=== PATIENT | female | born 1950 | race Caucasian/White ===

== ENCOUNTER 2019-10-10 14:13 | Inpatient (IN) | payer MEDICARE ==
[~2019-10-10] VITALS: Ht 147.3 cm; Wt 90.7 kg
[~2019-10-10 14:13] MED LIST: ACYC800 PO; AMOCLA875 PO; GABA600 PO; K-Dur20 MEQ PO
[2019-10-10 14:34] LABS: BASOPHILS ABSOLUTE AUTO 0.03 K/mm3 (0.00-0.23); BASOPHILS PERCENT AUTO 0 % (0-2); EOSINOPHILS ABSOLUTE AUTO 0.18 K/mm3 (0.00-0.68); EOSINOPHILS PERCENT AUTO 2 % (0-6); Hematocrit 23.8 % (33.0-51.0); Hemoglobin 7.1 g/dL (11.5-16.0); IMMATURE GRAN ABSOLUTE AUTO 0.03 K/mm3 (0.00-0.10); IMMATURE GRAN PERCENT AUTO 0 % (0-1); LYMPHOCYTES ABSOLUTE AUTO 1.04 K/mm3 (0.84-5.20); LYMPHOCYTES PERCENT AUTO 12 % (21-46); MONOCYTES PERCENT AUTO 8 % (4-13); Mean Corpuscular HGB 22.9 pg (26.0-34.0); Mean Corpuscular HGB Conc 29.8 g/dL (31.5-36.5); Mean Corpuscular Volume 77 fL (80-100); Mean Platelet Volume 9.3 fL (9.1-12.4); NEUTROPHILS ABSOLUTE AUTO 7.02 K/mm3 (1.96-9.15); NEUTROPHILS PERCENT AUTO 78 % (41-73); Platelet Count 343 K/mm3 (150-400); RDW Coefficient Variation 13.9 % (11.7-14.2); RDW Standard Deviation 39.2 fL (35.1-46.3)
[2019-10-10 14:58] LABS: Alanine Aminotransfer (ALT/SGP 12 U/L (12-78); Albumin, Blood 2.9 g/dL (3.4-5.0); Albumin/Globulin Ratio 0.8 (0.8-1.8); Alk Phos 50 U/L (50-136); Anion Gap 6 mmol/L (6-16); Aspartate Aminotrans (AST/SGOT 13 U/L (12-37); Bilirubin, Total 0.5 mg/dL (0.1-1.0); Blood Urea Nitrogen 18 mg/dL (8-24); CO2, Blood 25 mmol/L (21-32); Calcium, Blood 8.6 mg/dL (8.5-10.1); Chloride, Blood 109 mmol/L (98-108); Creatinine, Blood 0.95 mg/dL (0.40-1.00); Globulin, Blood 3.8 g/dL (2.2-4.0); Glomerular Filtration Rate >60 (60-); Glucose, Blood 115 mg/dL (70-99); Potassium, Blood 3.6 mmol/L (3.5-5.5); Sodium, Blood 140 mmol/L (136-145); Total Protein, Blood 6.7 g/dL (6.4-8.2); Troponin I <0.015 ng/mL (0.000-0.040)
[2019-10-10 17:57] LABS: Percent Saturation 3.9 % (15.0-50.0)
[2019-10-10 18:31] LABS: Thyroid Stimulating Hormone 4.24 uIU/mL (0.360-4.800)
--- NOTE | 2019-10-10 19:16 | NUR ---
SHIFT SUMMARY PT ARRIVED TO PCU FROM ED AROUND 1725, ADMITTED FOR NEAR SYNCOPAL EPISODE & ANEMIA. PT AWAKE & ALERT. VSS. PT NOTED TO HAVE HGB OF 7.1 IN THE ED; CURRENTLY RECEIVING IV IRON INFUSION; PLAN IS TO RECEIVE 1 UNIT PRBCS & SCHEDULED IRON INFUSIONS. PT STATES THAT SHE HAS HAD INTERMITTENT VAGINAL BLEEDING X1 YEAR THAT SHE NEVER SOUGHT MEDICAL ATTENTION FOR. PT DID HAVE EPISODE OF VAGINAL BLEEDING W/ SMALL AMOUNT OF BLOOD NOTED ON PAD. INK GRINDER CONSULT WAS CALLED IN TO DR. MARYLU MICHELLE BY THIS RN; DISCUSSED TO MONITOR BLEEDING CLOSELY, MD WILL BE IN TOMORROW TO SEE PT. PELVIC ULTRASOUND DONE AT BEDSIDE. DISCUSSED W/ PT TO CALL W/ ASSISTANCE TO THE BATHROOM; PT VERBALIZED UNDERSTANDING. CURRENTLY RESTING IN BED IN NO DISTRESS; DENIES ANY C/O CHEST PAIN/PRESSURE, SOB, PALPITATIONS, OR DIZZINESS/LIGHTHEADEDNESS. REPORT GIVEN TO ONCOMING RN.
[2019-10-10 23:52] LABS: Hematocrit 28.6 % (33.0-51.0); Hemoglobin 8.7 g/dL (11.5-16.0); Mean Corpuscular HGB 24.2 pg (26.0-34.0); Mean Corpuscular HGB Conc 30.4 g/dL (31.5-36.5); Mean Platelet Volume 9.2 fL (9.1-12.4); Platelet Count 341 K/mm3 (150-400); RDW Coefficient Variation 14.9 % (11.7-14.2); RDW Standard Deviation 43.4 fL (35.1-46.3); Red Blood Cell Count 3.59 M/mm3 (3.80-5.20)
[2019-10-10 23:53] LABS: Mean Corpuscular Volume 80 fL (80-100)
[2019-10-11 04:07] LABS: Hematocrit 26.6 % (33.0-51.0); Hemoglobin 8.2 g/dL (11.5-16.0); Mean Corpuscular HGB 24.3 pg (26.0-34.0); Mean Corpuscular HGB Conc 30.8 g/dL (31.5-36.5); Mean Corpuscular Volume 79 fL (80-100); Mean Platelet Volume 9.4 fL (9.1-12.4); Platelet Count 320 K/mm3 (150-400); RDW Coefficient Variation 14.7 % (11.7-14.2); RDW Standard Deviation 42.4 fL (35.1-46.3); Red Blood Cell Count 3.37 M/mm3 (3.80-5.20); White Blood Cell Count 7.08 K/mm3 (4.00-11.30)
--- NOTE | 2019-10-11 04:22 | NUR ---
SHIFT SUMMARY PT HAS RESTED WELL THIS SHIFT. PT CONTINUES TO HAVE VAGINAL BLEEDING. MODERATE FLOW LIKE A PERIOD. SHE HAS CHANGED HER PAD TWICE THIS SHIFT AND IT HAS NOT BEEN OVERLY SATURATED. PT REPORTS VERY LITTLE CLOTS. PT RECEIVED ONE UNIT OF PRBC'S AND TOLERATED WELL. HGB UP TO 8.7 WITH 2330 CHECK. PENDING AM RESULTS AT THIS TIME. VITALS ARE STABLE. PT SBA TO BATHROOM. SHE DENIES PAIN OR NEEDS FOR MOST OF THE NIGHT. OTHER ASSESSMENTS WNL. PT TO CONTINUE IRON INFUSIONS TODAY. IVF INFUSING AT THIS TIME X1 BAG. AWAITING OBGYN CONSULT. BED IN LOWEST POSITION, CALL LIGHT WITHIN REACH. WILL CONTINUE TO MONITOR AND REPORT TO ONCOMING RN.
--- NOTE | 2019-10-11 11:02 | NUR ---
RECIEVED REPORT FROM RASHI LEE RN, @ [phone]. PATIENT TO TRANSFER TO ROOM 306.
--- NOTE | 2019-10-11 11:26 | NUR ---
TRANSFER NOTE NO ACUTE CHANGES THROUGHOUT SHIFT. VSS. PT DENIED ANY C/O CHEST PAIN/PRESSURE, SOB, DIZZINESS, OR LIGHTHEADEDNESS. GAMBLING BOX PERSON DR. MICHELLE WAS IN TO SEE PT FOR VAGINAL BLEEDING; DISCUSSED THAT SHE CAN BE SEEN AN OUTPATIENT THIS WEEK. NOTIFIED DR. ALVARADO, BUT HE WOULD STILL LIKE TO KEEP PT TO MONITOR HER. ECHO RESULTS PENDING. PT TRANSFERRED TO MEDICAL FLOOR, NON-TELE. REPORT CALLED TO CALVIN JACOBS. PT TRANSFERRED TO 306 VIA WHEELCHAIR IN STABLE CONDITION. ALL BELONGINGS SENT W/ PT.
--- NOTE | 2019-10-11 16:15 | NUR ---
PATIENT HAS HAD AN UNEVENTFUL DAY SINCE TRANSFERING TO THE MEDICAL UNIT THIS MORNING/AFTERNOON. SHE CALLS APPROPRIATELY FOR STAFF ASSIST NEEDED; SHE IS INDEPENDENT IN HER ROOM. NO ACUTE CHANGES TO REPORT ON AT THIS TIME.
--- NOTE | 2019-10-12 04:23 | NUR ---
SHIFT SUMMARY ADMITTED FOR SYNCOPE. FULL CODE. FOUND TO BE ANEMIC: MONITORING H&H LABS, BLOOD TRANSFUSED ON PREVIOUS SHIFT, IV IRON TO BE INFUSED SCHEDULED. SHE IS A&O X4, INDEPENDENT, RA, CARDIAC DIET, SHE LIVES WITH FAMILY. GYNECOLOGY CONSULT WILL SEE HER OUTPT FOR 1+ YEAR OF PAINLESS VAGINAL BLEEDING AND THICKENED ENDOMETRIAL LINING FOUND ON ULTRASOUND. HX: CAD, VT W/2 STENTS, SHINGLES, CARPAL TUNNEL. SHE IS HOPEFUL FOR DC TODAY.
[2019-10-12 05:35] LABS: BASOPHILS ABSOLUTE AUTO 0.04 K/mm3 (0.00-0.23); BASOPHILS PERCENT AUTO 1 % (0-2); EOSINOPHILS ABSOLUTE AUTO 0.15 K/mm3 (0.00-0.68); EOSINOPHILS PERCENT AUTO 2 % (0-6); Hematocrit 27.7 % (33.0-51.0); Hemoglobin 8.2 g/dL (11.5-16.0); IMMATURE GRAN ABSOLUTE AUTO 0.05 K/mm3 (0.00-0.10); IMMATURE GRAN PERCENT AUTO 1 % (0-1); LYMPHOCYTES ABSOLUTE AUTO 1.22 K/mm3 (0.84-5.20); LYMPHOCYTES PERCENT AUTO 16 % (21-46); MONOCYTES ABSOLUTE AUTO 0.83 K/mm3 (0.16-1.47); MONOCYTES PERCENT AUTO 11 % (4-13); Mean Corpuscular HGB 23.7 pg (26.0-34.0); Mean Corpuscular HGB Conc 29.6 g/dL (31.5-36.5); Mean Corpuscular Volume 80 fL (80-100); Mean Platelet Volume 9.8 fL (9.1-12.4); NEUTROPHILS ABSOLUTE AUTO 5.52 K/mm3 (1.96-9.15); NEUTROPHILS PERCENT AUTO 71 % (41-73); Platelet Count 301 K/mm3 (150-400); RDW Coefficient Variation 15.2 % (11.7-14.2); RDW Standard Deviation 43.5 fL (35.1-46.3); Red Blood Cell Count 3.46 M/mm3 (3.80-5.20); White Blood Cell Count 7.81 K/mm3 (4.00-11.30)
--- NOTE | 2019-10-12 16:07 | NUR ---
SHIFT SUMMARY PATIENT DENIES PAIN, NAUSEA, AND SHORTNESS OF BREATH. PATIENT UP INDEPENDENT IN ROOM. PATIENT AWAITING FURTHER CARE PLANNING REGARDING HER CARDIAC STATUS. PATIENT MAY NEED STRESS TEST OR ORNAMENT STAPLER. CALL LIGHT IN REACH.
--- NOTE | 2019-10-12 17:18 | NUR ---
Initial spiritual care note: Lengthy visit with Alaina. She has suffered the loss of her dtr and spouse. she lives with her son. She admits she has neglected her health, preferring to stay in denial. She also admits confusion and fear about the unknown. she was unable to articulate what physician's have told her. she appears emotionally overwhelmed and was often tearful. She has a strong paula and the love /support of her restorationist. Alaina responded well to gentle bereavement counselling psychologist, emotional affirmation, and assurance of God's love. We had an easy rapport. I have asked palliative care RN to provide clear medical explaination and guidence. I will remain available.
--- NOTE | 2019-10-12 19:32 | NUR ---
Initial Visit: Pt is alert, oriented, pleasant. She is independent in the room. She denies pain, admits she is slightly anxious. She is not short of breath at this time, but reports this happens at home sometimes. She is frequently fatigued; she states that she slept well here at the hospital, but doesn't sleep well at home. Pt is admitted for syncope. She reports that she was at a grocery store and started getting lightheaded. Those around her brought her a chair to sit in. She has been bleeding vaginally for the past one year. She states that it is sometimes heavy bleeding and sometimes light. She appears to believe that she is also peeing blood and may need further education about this. She is following up with gynocology outpatient. She reports that she may have cysts or she may have "the other word" [cancer]. She is hoping that it is an "easy fix." Her appointment is on Friday to follow up with gynocology. She is also waiting for a emergency detail driver. She states that she hopes that the emergency detail driver isn't too late tonight. It is unclear how much education she has gotten on her current heart issue. As the emergency detail driver has not talked to her as yet, further teaching is not done at this time. Pt is aware that she is getting new heart medications prescribed to her. She reports that she hasn't been to a provider in quite a long amount of years and she doesn't have a PCP. She reports severe anxiety about follow up with so many doctors and she is very uncomfortable trying to "keep things straight." Pt lives with her son and her grandson in an apartment. She has noticed for the last 3-4 months that she is profoundly tired. She takes frequent "cat naps" during the day. She is setting her alarm to go off every 1.5-2 hours so that she can use the restroom and see if she is bleeding. She is unable to do infant caregiver except washing dishes - and even then takes frequent breaks to sit down during the task. All other infant caregiver she is unable to do and so tired that she doesn't care that she can't get all of it done. She has not told any of her friends and family that she has been bleeding, but she has shared that she is fatigued. She is unable to perform hobbies and sometimes watches TV. Discussed advanced care planning with her and provided with an advance directive. She is wary of this conversation when it is mentioned that I am talking to her about healthcare planning for the future. She appears very fearful of this. She reports that she has "coded" in the past and woke up sore in the ICU after her stent placements. This code happened during the procedure and she doesn't remember anything except the bruising and soreness she recovered from. Her decision maker is her son. She did have a daughter, but she has been in 2002. She doesn't share her healthcare struggles with her son, so he does not know of any of her wishes for resusitation. Encouraged her to read and look through the advance directive and ask questions if she needs to on next palliative visit. She verbalizes understanding of this. Pt will benefit from further conversations regarding advance care planning. Gentle correctional classification counselor given this visit, but more coaching would be beneficial, especially after she finds out what is happening gynocologically and cardiac related. Her EF is almost to hospice eligible criteria. Reviewed importance of follow up appointments and sharing information with her son regarding her health problems. PPS 70% KPS 60% Palliative care to continue to follow.
--- NOTE | 2019-10-13 03:01 | NUR ---
Pt was speaking on telephone to several others over time at shift commence. Has been resting quietly since HS with no noted interruptions or distress as of this writing. Call light in reach,
[2019-10-13 05:11] LABS: BASOPHILS ABSOLUTE AUTO 0.03 K/mm3 (0.00-0.23); BASOPHILS PERCENT AUTO 0 % (0-2); EOSINOPHILS ABSOLUTE AUTO 0.21 K/mm3 (0.00-0.68); EOSINOPHILS PERCENT AUTO 3 % (0-6); Hematocrit 26.6 % (33.0-51.0); IMMATURE GRAN ABSOLUTE AUTO 0.07 K/mm3 (0.00-0.10); IMMATURE GRAN PERCENT AUTO 1 % (0-1); LYMPHOCYTES ABSOLUTE AUTO 1.26 K/mm3 (0.84-5.20); LYMPHOCYTES PERCENT AUTO 16 % (21-46); MONOCYTES ABSOLUTE AUTO 0.75 K/mm3 (0.16-1.47); MONOCYTES PERCENT AUTO 9 % (4-13); Mean Corpuscular HGB 23.9 pg (26.0-34.0); Mean Corpuscular HGB Conc 30.1 g/dL (31.5-36.5); Mean Corpuscular Volume 79 fL (80-100); Mean Platelet Volume 9.8 fL (9.1-12.4); NEUTROPHILS ABSOLUTE AUTO 5.68 K/mm3 (1.96-9.15); NEUTROPHILS PERCENT AUTO 71 % (41-73); Platelet Count 292 K/mm3 (150-400); RDW Coefficient Variation 15.6 % (11.7-14.2); RDW Standard Deviation 44.3 fL (35.1-46.3); Red Blood Cell Count 3.35 M/mm3 (3.80-5.20)
[2019-10-13 05:36] LABS: Anion Gap 10 mmol/L (6-16); Blood Urea Nitrogen 26 mg/dL (8-24); Bun/Creatinine Ratio 32.7 (12.0-20.0); CO2, Blood 22 mmol/L (21-32); Calcium, Blood 8.9 mg/dL (8.5-10.1); Chloride, Blood 108 mmol/L (98-108); Glomerular Filtration Rate >60 (60-); Glucose, Blood 92 mg/dL (70-99); Potassium, Blood 3.5 mmol/L (3.5-5.5); Sodium, Blood 140 mmol/L (136-145)
[2019-10-13] MEDS ORDERED: FERSU300 PO (08:25)
[2019-10-13] MEDS ORDERED: ASPI81CH PO (08:26)
[2019-10-13] MEDS ORDERED: LISI5 PO (08:26)
[2019-10-13] MEDS ORDERED: ATOR20 PO (08:27)
[2019-10-13] MEDS ORDERED: METO25ER PO (08:38)
--- NOTE | 2019-10-13 10:37 | NUR ---
SUMMARY/DISCHARGE PT DISCHARGED TO HOME, PT VERBALIZED UNDERSTANDING OF MEDICATIONS AND FOLLOW UP, PT TAKEN OUT SAFELY VIA WHEELCHAIR
== END 2019-10-13 10:36 | disposition home or self-care (01) | DRG 811 ==
LOC: ER 14:13 → MEDS 14:14 → PCU 14:14 → MEDS 10-11 11:16 → ENPENDDIS 10-13 07:59 → MEDS 10-13 10:36
PROVIDERS: Emergency Medicine; ADMIT Hospitalist
PROC: 30233N1 Transfusion of Nonautologous Red Blood Cells into Peripheral Vein, Percutaneous Approach (ICD-10-PCS; principal; 2019-10-12)
DX: D62 Acute posthemorrhagic anemia (principal); I50.23 Acute on chronic systolic (congestive) heart failure; N95.0 Postmenopausal bleeding; I25.10 Atherosclerotic heart disease of native coronary artery without angina pectoris; Z95.5 Presence of coronary angioplasty implant and graft; D63.8 Anemia in other chronic diseases classified elsewhere; I25.2 Old myocardial infarction
CPT/HCPCS: 36415; 71045; 76830; 76856; 80048; 80053; 82272; 82607; 82728; 82746; 83540; 83550; 83880; 84443; 84484; 85025; 85027; 86850; 86900; 86901; 86923; 93005; 93010; 93306; 96374; 96376; 97162; 97530; 99285-25; A9270-GY; G0378; J2916; J7030; J7040; P9016

== ENCOUNTER → 2019-10-15 | Outpatient (CLI) | payer MEDICARE ==
[~2019-10-15] MED LIST changes: +ASPI81CH PO; +ATOR20 PO; +FERSU300 PO; +LISI5 PO; +METO25ER PO
== END | disposition home or self-care (01) ==
LOC: LAB SHORT 13:41 → PLD 13:41
DX: N95.0 Postmenopausal bleeding (principal)
CPT/HCPCS: 88305; 88341; 88342

== ENCOUNTER 2019-11-11 11:49 | Emergency (ER) | payer MEDICARE ==
[~2019-11-11] VITALS: Ht 147.3 cm; Wt 70.3 kg
[2019-11-11 12:46] LABS: BASOPHILS ABSOLUTE AUTO 0.02 K/mm3 (0.00-0.23); BASOPHILS PERCENT AUTO 0 % (0-2); EOSINOPHILS ABSOLUTE AUTO 0.07 K/mm3 (0.00-0.68); EOSINOPHILS PERCENT AUTO 1 % (0-6); Hematocrit 23.8 % (33.0-51.0); Hemoglobin 7.1 g/dL (11.5-16.0); IMMATURE GRAN ABSOLUTE AUTO 0.07 K/mm3 (0.00-0.10); IMMATURE GRAN PERCENT AUTO 1 % (0-1); LYMPHOCYTES ABSOLUTE AUTO 0.86 K/mm3 (0.84-5.20); LYMPHOCYTES PERCENT AUTO 8 % (21-46); MONOCYTES ABSOLUTE AUTO 0.51 K/mm3 (0.16-1.47); MONOCYTES PERCENT AUTO 5 % (4-13); Mean Corpuscular HGB 23.4 pg (26.0-34.0); Mean Corpuscular HGB Conc 29.8 g/dL (31.5-36.5); Mean Corpuscular Volume 78 fL (80-100); Mean Platelet Volume 9.8 fL (9.1-12.4); NEUTROPHILS ABSOLUTE AUTO 9.93 K/mm3 (1.96-9.15); NEUTROPHILS PERCENT AUTO 87 % (41-73); Platelet Count 397 K/mm3 (150-400); RDW Coefficient Variation 17.6 % (11.7-14.2); RDW Standard Deviation 49.5 fL (35.1-46.3); Red Blood Cell Count 3.04 M/mm3 (3.80-5.20); White Blood Cell Count 11.46 K/mm3 (4.00-11.30)
[2019-11-11 13:39] LABS: Albumin, Blood 2.8 g/dL (3.4-5.0); Albumin/Globulin Ratio 0.6 (0.8-1.8); Bilirubin, Total 0.5 mg/dL (0.1-1.0); Bun/Creatinine Ratio 18.5 (12.0-20.0); Calcium, Blood 9.4 mg/dL (8.5-10.1); Creatinine, Blood 1.3 mg/dL (0.40-1.00); Globulin, Blood 4.7 g/dL (2.2-4.0); Potassium, Blood 3.7 mmol/L (3.5-5.5); Total Protein, Blood 7.5 g/dL (6.4-8.2)
== END 2019-11-11 17:41 | disposition home or self-care (01) ==
LOC: ER 11:49
PROVIDERS: Physician Assistant
DX: D62 Acute posthemorrhagic anemia (principal); C54.1 Malignant neoplasm of endometrium; Z88.0 Allergy status to penicillin; Z88.7 Allergy status to serum and vaccine; I25.2 Old myocardial infarction
CPT/HCPCS: 36415; 36430; 80053; 85025; 86850; 86900; 86901; 86923; 99284-25; J7030; P9016

== ENCOUNTER 2019-11-19 00:18 | Day surgery (SDC) | payer MEDICARE ==
--- NOTE | 2019-11-19 16:52 | NUR ---
PT HAD INSPIRATORY CRACKLES TO LEFT BASE PRIOR TO START OF TRANSFUSION.
--- NOTE | 2019-11-19 18:44 | NUR ---
TRANSFERED PT TO ROOM 227. CARE ASSUMED BY BRIGITTE CAPPS RN.
--- NOTE | 2019-11-19 19:15 | NUR ---
BLOOD STARTED PT RESTING IN BED, VS NOTED. PT DENIES FURTHER NEEDS. FLUIDS GIVEN. CALL LIGHT WITHIN REACH. SEE TAR.
--- NOTE | 2019-11-19 22:11 | NUR ---
PT DISCHARGED X1 UNIT OF PRBCs INFUSED. IV DC'D WNL. ASSISTED WITH CHANGING INTO HOME CLOTHING. PT ASSISTED OUT VIA WHEELCHAIR, BELONGINGS BY SIDE, TO SON'S CAR. SBA TO TRANSFER.
== END 2019-11-19 22:05 | disposition home or self-care (01) ==
LOC: ATC 00:18 → SURS 18:27 → ATC 22:05
DX: C54.1 Malignant neoplasm of endometrium (principal); E78.5 Hyperlipidemia, unspecified; D63.0 Anemia in neoplastic disease; I25.10 Atherosclerotic heart disease of native coronary artery without angina pectoris; I82.220 Acute embolism and thrombosis of inferior vena cava; Z88.0 Allergy status to penicillin; Z79.82 Long term (current) use of aspirin; Z95.5 Presence of coronary angioplasty implant and graft
CPT/HCPCS: 36415; 86850; 86900; 86901; 86923; J7050; P9016

== ENCOUNTER 2019-12-01 20:16 | Inpatient (IN) | payer MEDICARE, OTHER ==
[~2019-12-01] VITALS: Ht 139.7 cm; Wt 66.1 kg
[2019-12-01 21:36] LABS: Hematocrit 23.3 % (33.0-51.0); Hemoglobin 6.9 g/dL (11.5-16.0); Mean Corpuscular HGB 25.4 pg (26.0-34.0); Mean Corpuscular HGB Conc 29.6 g/dL (31.5-36.5); Mean Platelet Volume 11.2 fL (9.1-12.4); Platelet Count 110 K/mm3 (150-400); RDW Coefficient Variation 18.8 % (11.7-14.2); RDW Standard Deviation 58.9 fL (35.1-46.3); Red Blood Cell Count 2.72 M/mm3 (3.80-5.20)
[2019-12-01 21:38] LABS: BASOPHILS PERCENT AUTO 0 % (0-2); EOSINOPHILS PERCENT AUTO 0 % (0-6); IMMATURE GRAN ABSOLUTE AUTO 0.04 K/mm3 (0.00-0.10); IMMATURE GRAN PERCENT AUTO 14 % (0-1); LYMPHOCYTES ABSOLUTE AUTO 0.12 K/mm3 (0.84-5.20); LYMPHOCYTES PERCENT AUTO 43 % (21-46); MONOCYTES ABSOLUTE AUTO 0.04 K/mm3 (0.16-1.47); MONOCYTES PERCENT AUTO 14 % (4-13); Mean Corpuscular Volume 86 fL (80-100); NEUTROPHILS ABSOLUTE AUTO 0.08 K/mm3 (1.96-9.15); NEUTROPHILS PERCENT AUTO 29 % (41-73)
[2019-12-01 21:39] LABS: White Blood Cell Count 0.28 K/mm3 (4.00-11.30)
[2019-12-01 21:55] LABS: International Normalized Ratio 1.1; Prothrombin Time Results 11.7 Sec (9.7-11.5)
[2019-12-01 21:59] LABS: Albumin, Blood 2.2 g/dL (3.4-5.0); Albumin/Globulin Ratio 0.5 (0.8-1.8); Bilirubin, Total 0.7 mg/dL (0.1-1.0); Calcium, Blood 8.4 mg/dL (8.5-10.1); Creatinine, Blood 1.91 mg/dL (0.40-1.00); Globulin, Blood 4.2 g/dL (2.2-4.0); Potassium, Blood 4.6 mmol/L (3.5-5.5); Total Protein, Blood 6.4 g/dL (6.4-8.2)
[2019-12-01 22:16] LABS: BAND PERCENT MAN 5 % (0-8); BASOPHILS PERCENT MAN 1 % (0-2); EOSINOPHILS PERCENT MAN 0 % (0-6); LYMPHOCYTES ABSOLUTE MAN 0.15 K/mm3 (0.84-5.20); LYMPHOCYTES PERCENT MAN 57 % (21-46); MONOCYTES ABSOLUTE MAN 0.01 K/mm3 (0.16-1.47); MONOCYTES PERCENT MAN 5 % (4-13); SEG NEUTROPHILS PERCENT MAN 31 % (41-73); TOTAL CELLS COUNTED 75
[2019-12-01 22:39] LABS: Source, Urine Catheter
[2019-12-01 22:47] LABS: Appearance, Urine Hazy (Clear); Blood, Urine 4+ (Neg); Color, Urine Amber (P-Yellow); Glucose Qualitative, Urine 1+ (Neg); Ketones, Urine 1+ (Neg); Leukocyte Esterase, Urine 1+ (Neg); Nitrite, Urine Neg (Neg); Protein, Urine 2+ (Neg); Urobilinogen, Urine 1+ (Normal)
[2019-12-01 22:51] LABS: Bilirubin, Urine 1+ (Neg)
[2019-12-01 22:53] LABS: Amorphous Mod (0-Heavy); Bacteria Mod /hpf; Red Blood Cells, Urine 0-2 /hpf (0-2); Squamous Epithelial Cells Few /hpf (Few)
--- NOTE | 2019-12-02 01:42 | NUR ---
ADMIT ASSESSMENT PT ARRIVED FROM THE ER VIA GURNEY. SHE WAS SLID OVER TO BED WITH NO ISSUES. PT WAS ABLE TO HELP TURN AND ANSWER ALL QUESTIONS. SHE APPEARS TO BE ALERT AND ORIENTED, BUT WHEN SHE FALLS ALSEEP SHE BECOMES DISORIENTED TO WHERE SHE IS. PT IS COOPERATIVE WITH CARE AND ABLE TO GIVE HEALTH HISTORY. BP IS LOW AT THIS TIME. ONE UNIT OF PRBC'S RUNNING AT 100ML/HR. PT HAS A HISTORY OF CHF THUS BEING CAREFUL WITH FLUIDS RUNNING. OXYGEN SATS WNL WHILE PT IS AWAKE, HOWEVER WHEN SHE FALL ASLEEP THEY DIP TO 84%. 2L N/C WAS PLACED ON HER AT THIS TIME. LUNGS ARE CLEAR AND SHE STATES SHE DOES NOT FEEL SOB. PT DENIES ANY PAIN CURRENTLY. PT HAS A MCKENNA CATH IN PLACE DRAINING YELLOW URINE WITH SOME SEDEMENT NOTED. PT DOES HAVE SOME BLEEDING THAT APPEARS TO BE COMING FROM HER VAGINA. SHE STATES SHE HAS BEEN HAVING THIS FOR A WHILE. PAD WAS PLACED TO CATCH BLOOD. PAS STOCKINGS PLACED ON PT. CALL LIGHT REVIEWED WITH PT AND WITHIN REACH. BED IN LOW POSISTION. BICARB GTT WILL BE STARTED SOON BLOOD IS FINISHED. WILL CON'T TO MONITOR AND KEEP PT SAFE T/O SHIFT.
[2019-12-02 02:48] LABS: Hematocrit 20.8 % (33.0-51.0); Hemoglobin 6.9 g/dL (11.5-16.0); Mean Corpuscular HGB 26.7 pg (26.0-34.0); Mean Corpuscular HGB Conc 33.2 g/dL (31.5-36.5); Mean Platelet Volume 10.7 fL (9.1-12.4); Platelet Count 67 K/mm3 (150-400); RDW Coefficient Variation 17.1 % (11.7-14.2); RDW Standard Deviation 50.8 fL (35.1-46.3); Red Blood Cell Count 2.58 M/mm3 (3.80-5.20)
[2019-12-02 02:50] LABS: BASOPHILS PERCENT AUTO 0 % (0-2); EOSINOPHILS PERCENT AUTO 0 % (0-6); IMMATURE GRAN PERCENT AUTO 0 % (0-1); LYMPHOCYTES ABSOLUTE AUTO 0.11 K/mm3 (0.84-5.20); LYMPHOCYTES PERCENT AUTO 48 % (21-46); MONOCYTES ABSOLUTE AUTO 0.04 K/mm3 (0.16-1.47); MONOCYTES PERCENT AUTO 17 % (4-13); Mean Corpuscular Volume 81 fL (80-100); NEUTROPHILS ABSOLUTE AUTO 0.08 K/mm3 (1.96-9.15); NEUTROPHILS PERCENT AUTO 35 % (41-73)
[2019-12-02 02:51] LABS: White Blood Cell Count 0.23 K/mm3 (4.00-11.30)
[2019-12-02 03:06] LABS: Albumin, Blood 1.8 g/dL (3.4-5.0); Albumin/Globulin Ratio 0.5 (0.8-1.8); Bilirubin, Total 0.8 mg/dL (0.1-1.0); Bun/Creatinine Ratio 21.6 (12.0-20.0); Calcium, Blood 8.1 mg/dL (8.5-10.1); Creatinine, Blood 2.13 mg/dL (0.40-1.00); Globulin, Blood 3.7 g/dL (2.2-4.0); Potassium, Blood 4.4 mmol/L (3.5-5.5); Total Protein, Blood 5.5 g/dL (6.4-8.2)
--- NOTE | 2019-12-02 05:40 | NUR ---
SHIFT SUMMARY PT CON'T TO BE STABLE WITH NO CHANGES FROM BASELINE. VITALS ARE STABLE. BP IS HOLDING WITH BICARB GTT RUNNING ORDERED. PERIPHERAL IV'S CON'T TO BE PATENT. MCKENNA CATH CON'T TO BE PATENT. PT DID HAVE A MINIMAL AMOUNT OF OUTPUT SINCE ARRIVAL FROM HER. RAMIN PAD CHANGED AT THIS TIME. SMALL AMOUNT OF BLOOD PRESENT ON PAD. PT CON'T TO HAVE CALL LIGHT IN REACH. WILL CON'T TO MONITOR PT AND KEEP SAFE TILL REPORT TO ONCOMING RN.
--- NOTE | 2019-12-02 08:42 | NUR ---
DR ALVARADO AT THE BEDSIDE. DISCUSSED CONTINUED LOW H+H. WILL RECHECK AND TRANSFUSE IF NEEDED.
[2019-12-02 09:33] LABS: Hematocrit 21.5 % (33.0-51.0)
--- NOTE | 2019-12-02 09:40 | NUR ---
CALLED AND LEFT MESSAGE WITH DR ALVARADO RE: PT'S F/U H+H.
[2019-12-02 10:07] LABS: Adenovirus Not Detected (NOT DETECT); Coronavirus 229E Not Detected (NOT DETECT); Coronavirus HKU1 Not Detected (NOT DETECT); Coronavirus NL63 Not Detected (NOT DETECT); Coronavirus OC43 Not Detected (NOT DETECT); Human Metapneumovirus Not Detected (NOT DETECT); Human Rhinovirus/Enterovirus Not Detected (NOT DETECT); Influenza A/H1 Not Detected (NOT DETECT); Influenza A/H3 Not Detected (NOT DETECT)
[2019-12-02 10:08] LABS: Bordetella pertussis Not Detected (NOT DETECT); Chlamydophila pneumoniae Not Detected (NOT DETECT); Influenza A/2009-H1 Not Detected (NOT DETECT); Influenza B Not Detected (NOT DETECT); Mycoplasma pneumoniae Not Detected (NOT DETECT); Parainfluenza Virus 1 Not Detected (NOT DETECT); Parainfluenza Virus 2 Not Detected (NOT DETECT); Parainfluenza Virus 3 Not Detected (NOT DETECT); Parainfluenza Virus 4 Not Detected (NOT DETECT); Respiratory Syncytial Virus Not Detected (NOT DETECT)
--- NOTE | 2019-12-02 16:02 | NUR ---
SHIFT SUMMARY: PT IS ALERT AND ORIENTED X3. PT REPORTS SHE "FEELS BETTER" AFTER REC'ING 1 UN IT PRBC'S FROM THIS RN TODAY. PT ABLE TO MINIMALLY ASSIST WITH REPOSITIONING IN BED, HOWEVER, IS VERY DECONDITIONED R/T OVER HEALTH CONDITION. PT'S SON STATES, "THIS LAST WEEK IS THE FIRST WEEK I HAVE HAD TO DO EVERYTHING FOR HER." PT DENIES ANY PAIN WHEN ASKED BUT WILL MOAN WITH MOVEMENT IN THE BED. LUNGS ARE CLEAR BUT DIMINISHED IN THE BILATERAL BASES. SP02 SATS HIGH 90% RANGE. HR REGULAR, SR WITH RT BBB AND OCASSIONAL PAC'S. SODIUM BICARB INFUSING AT 75ML/HR. ABD SLIGHTLY DISTENDED/NON-TENDER WITH HYPOACTIVE BT'S X4 QUADS. PT HAS POOR APPETITE, WHICH PT HAS HAD AT HOME. PT REPORTS RECENT DIAGNOSIS OF "VAGINAL CA A FEW MONTHS AGO" AND REC'D HER FIRST ROUND OF CHEMO A COUPLE WEEKS AGO. MCKENNA CATH DRAINING CLEAR, YELLOW URINE TO GRAVITY. NO BM THIS SHIFT, HOWEVER, PT HAS HAD PERSISTANT DIARRHEA AT HOME AND IS PENDING A GI PANEL. NO BM THIS SHIFT.
[2019-12-02 17:04] LABS: Hematocrit 24.5 % (33.0-51.0); Hemoglobin 8.1 g/dL (11.5-16.0)
[2019-12-02] MEDS ORDERED: ANASTROZOLE PO (18:52)
--- NOTE | 2019-12-02 21:30 | NUR ---
PT RESTING IN BED. DENIES PAIN, N/V, AND SOB. GETS A LITTLE SOB WITH EXERTION BUT SPO2 REMAINS GREATER THAN 95% ON RA. GOT UP TO BSC AND HAD A LIQUID RUST/BROWN/BLACK STOOL. DIFFICULT TO TELL IF ANY BLOOD IS FROM THE RECTUM, BUT WHEN RECTUM IS WIPED IT APPEARS BROWN. BLOOD APPEARS TO BE COMING FROM VAGINAL AREA. WEAK T/O BUT ABLE TO GET OOB WITH MOD 1 PERSON ASSIST. CALL LIGHT IN REACH AND PT HAS BEEN USING IT APPROPRIATELY.
[2019-12-02 22:59] LABS: Hemoglobin 7.2 g/dL (11.5-16.0)
--- NOTE | 2019-12-02 23:14 | NUR ---
CALLED BRIANNE ARIAS ABOUT H&H DROPPING AGAIN. INFORMED HIM OF BLOOD THAT WAS PASSED EARLIER. NEW ORDERS FOR 1 UNIT PRBC'S NOW AND CHECK H&H AFTER. PT HAS ORDER FOR AM CBC. PT DOING WELL NO COMPLAINTS.
[2019-12-03 03:46] LABS: Hematocrit 25.9 % (33.0-51.0); Hemoglobin 8.5 g/dL (11.5-16.0); Mean Corpuscular HGB 27.5 pg (26.0-34.0); Mean Corpuscular HGB Conc 32.8 g/dL (31.5-36.5); Mean Platelet Volume 10.7 fL (9.1-12.4); Platelet Count 55 K/mm3 (150-400); RDW Standard Deviation 49.2 fL (35.1-46.3); Red Blood Cell Count 3.09 M/mm3 (3.80-5.20)
[2019-12-03 03:52] LABS: BASOPHILS PERCENT AUTO 0 % (0-2); EOSINOPHILS PERCENT AUTO 0 % (0-6); IMMATURE GRAN PERCENT AUTO 0 % (0-1); LYMPHOCYTES ABSOLUTE AUTO 0.04 K/mm3 (0.84-5.20); LYMPHOCYTES PERCENT AUTO 18 % (21-46); MONOCYTES ABSOLUTE AUTO 0.07 K/mm3 (0.16-1.47); MONOCYTES PERCENT AUTO 32 % (4-13); Mean Corpuscular Volume 84 fL (80-100); NEUTROPHILS ABSOLUTE AUTO 0.11 K/mm3 (1.96-9.15); NEUTROPHILS PERCENT AUTO 50 % (41-73)
[2019-12-03 03:53] LABS: White Blood Cell Count 0.22 K/mm3 (4.00-11.30)
[2019-12-03 04:03] LABS: Bun/Creatinine Ratio 24.5 (12.0-20.0); Calcium, Blood 7.8 mg/dL (8.5-10.1); Creatinine, Blood 1.55 mg/dL (0.40-1.00); Potassium, Blood 3.5 mmol/L (3.5-5.5)
--- NOTE | 2019-12-03 06:14 | NUR ---
SUMMARY PT RESTING IN BED. DENIES PAIN, N/V, AND DIZZINESS. GETS OOB WITH 1 PERSON ASSIST TO TOILET. PT IS HAVING LIQUID DIARRHEA AT TIMES. AND STILL HAVING VAGINAL BLEEDING. WHEN PT WIPES THERE IS BROWN/GREEN STOOL FROM THE RECTUM. IN TOILET EVERYTHING MIXES TOGETHER AND HAVE NOT BEEN ABLE TO GET A STOOL SAMPLE. PT GOT ONE UNIT OF PRBC'S. H&H 8.5 & 25.9. NO SIGN OF DISTRESS THIS AM. CALL LIGHT IN REACH AND PT USES APPROPRIATELY.
[2019-12-03 16:00] LABS: Hematocrit 29.3 % (33.0-51.0); Hemoglobin 9.7 g/dL (11.5-16.0); Mean Corpuscular HGB Conc 33.1 g/dL (31.5-36.5); Mean Corpuscular Volume 85 fL (80-100); Mean Platelet Volume 11.6 fL (9.1-12.4); RDW Coefficient Variation 16.2 % (11.7-14.2); RDW Standard Deviation 50.9 fL (35.1-46.3); Red Blood Cell Count 3.46 M/mm3 (3.80-5.20)
[2019-12-03 16:02] LABS: BASOPHILS ABSOLUTE AUTO 0.01 K/mm3 (0.00-0.23); BASOPHILS PERCENT AUTO 2 % (0-2); EOSINOPHILS PERCENT AUTO 0 % (0-6); IMMATURE GRAN PERCENT AUTO 0 % (0-1); LYMPHOCYTES ABSOLUTE AUTO 0.08 K/mm3 (0.84-5.20); LYMPHOCYTES PERCENT AUTO 19 % (21-46); MONOCYTES ABSOLUTE AUTO 0.05 K/mm3 (0.16-1.47); MONOCYTES PERCENT AUTO 12 % (4-13); NEUTROPHILS ABSOLUTE AUTO 0.29 K/mm3 (1.96-9.15); NEUTROPHILS PERCENT AUTO 68 % (41-73); Platelet Count 62 K/mm3 (150-400)
[2019-12-03 16:03] LABS: White Blood Cell Count 0.43 K/mm3 (4.00-11.30)
[2019-12-03 16:15] LABS: Magnesium, Blood 2.8 mg/dL (1.6-2.4)
[2019-12-03 16:21] LABS: Albumin, Blood 2.1 g/dL (3.4-5.0); Albumin/Globulin Ratio 0.5 (0.8-1.8); Bilirubin, Total 1.1 mg/dL (0.1-1.0); Bun/Creatinine Ratio 27.2 (12.0-20.0); Creatinine, Blood 1.51 mg/dL (0.40-1.00); Globulin, Blood 4.1 g/dL (2.2-4.0); Potassium, Blood 3.7 mmol/L (3.5-5.5); Thyroid Stimulating Hormone 1.65 uIU/mL (0.360-4.800); Total Protein, Blood 6.2 g/dL (6.4-8.2)
--- NOTE | 2019-12-03 16:49 | NUR ---
AT APPROX 1430 THE PCT CALLED RN TO BEDSIDE PT REPORTED FEELING ANXIOUS WHILE SITTING ON THE TOILET. PT WAS ESCORTED BACK TO BED AND VITALS TAKEN. HR WAS NOTED TO HAVE A IRREG TACHY HR ON SPO2 MONITOR AND PT WAS PLACED BACK ON TELEMETRY. PT WAS FOUND TO BE IN A WIDE IRREG QRS COMPLEX RYTHMN AND ADDITIONAL STAFF WERE CALLED TO THE BEDSIDE. DR LEVIN AND NATALIE WERE IN THE UNIT AND INITIALLY RESPONDED TO ASSIST. 12 LEAD EKG SHOWED PT TO BE IN A-FIB RVR WITH BBB (EKG READ BY DR ESTRADA). ORDERS RECEIVED TO GIVE PT 2.5MG METOPROLOL IV PUSH AND TO GIVE 2G MAGNESIUM IV PUSH. DR ALVARADO WAS CALLED TO BEDSIDE AND UPDATED. ESMOLOL GTT WAS STARTED WITH NORMAL SALINE BOLUS PT HAD SOME HYPOTENSION AFTER METOPROLOL. DR BUENROSTRO WAS OFFICALLY CONSULTED BY DR ALVARADO FOR CARDIAC RATE CONTROL. LABS CHECKED FOR POSSIBLE BLOOD LOSS. ESMOLOL WAS INITALLY TITRATED GENTLY RELATED TO SOFTER BPS. SEE CHART FOR VITALS DOCUMENTATION. PER PT'S REQUEST, PT'S SON SONYA WAS UPDATED ON HER STATUS. PT WAS STATUS CHANGED BACK TO ICU LEVEL OF CARE.
--- NOTE | 2019-12-03 17:21 | NUR ---
[place] of Care: Bedside report received from Emili SIMPSON. Patient alert and oriented x4, sitting upright in bed eating dinner. Denies pain, discomfort, SOB, or dyspnea at this time, spO2-97% on RA. Heart rhythm shows A-fib RVR with BBB, rate 140's-150's. Esmolol gtt infusing at 100mcg/kg/min, systolic BP in the 90's. 250ml fluid bolus infusing at this time. Will continue to monitor BP and HR. Will titrate Esmolol gtt as indicated and tolerated. Plan to contact Dr. Meeks if BP remains low or inhibits increase of Esmolol gtt to control heart rate. No s/s of active vaginal bleeding at this time H+H stable. Call light in reach, makes needs known. Will continue to monitor.
--- NOTE | 2019-12-03 17:27 | NUR ---
TRANSFER OF CARE REPORT GIVEN TO CALVIN ROACH.
--- NOTE | 2019-12-03 18:46 | NUR ---
Shift Summary: Continued have difficulty maintaining BP's (systolic 70's-90's) on Esmolol gtt at 100mcg/kg/min, and HR remained in the 150's-170's. Call then placed to Dr. Meeks. Received orders to D/C Esmolol gtt, IV digoxin, and PO digoxin. Also received orders to give Amiodarone 150mg IV bolus followed by Amiodarone gtt 1mg/hr x6hr, 0.5mg/hr x18hr. Amiodarone bolus given and gtt started. BP remains labile, systolic 70's-110, HR remains 140's-150's. Patient remains asymptomatic and states to be comfortable. Call light in reach, makes needs known. Will continue to monitor until report to NOC shift RN.
--- NOTE | 2019-12-03 19:00 | NUR ---
RECEIVED PERMISSON FROM PATIENT TO PROVIDE CARE THROUGHOUT MY CLINICAL SHIFT.
--- NOTE | 2019-12-03 20:00 | NUR ---
PT RESTING IN BED. A/O X4 DENIES PAIN, N/V AND SOB. HAVING DIARRHEA THAT IS MIXED WITH BLOOD FROM VAGINAL BLEEDING. PT IS USING BEDPAN DUE TO HR AND LOW BP UNABLE TO GET OOB. PT HAD NOT VOIDED SINCE MCKENNA WAS REMOVED DURING DAY SHIFT. PER PT REQUEST, AND DUE TO INCREASED HR AND BEDREST, PLACED MCKENNA. PT TOLERATED WELL. ON AMIODARONE GTT FOR HR. CALL LIGHT IN REACH.
[2019-12-03 22:21] LABS: Hematocrit 26.8 % (33.0-51.0); Hemoglobin 8.8 g/dL (11.5-16.0); Mean Corpuscular HGB 27.4 pg (26.0-34.0); Mean Corpuscular HGB Conc 32.8 g/dL (31.5-36.5); Mean Corpuscular Volume 84 fL (80-100); Mean Platelet Volume 11.9 fL (9.1-12.4); Platelet Count 56 K/mm3 (150-400); RDW Coefficient Variation 16.1 % (11.7-14.2); Red Blood Cell Count 3.21 M/mm3 (3.80-5.20)
[2019-12-03 22:24] LABS: BASOPHILS ABSOLUTE AUTO 0.01 K/mm3 (0.00-0.23); BASOPHILS PERCENT AUTO 2 % (0-2); EOSINOPHILS PERCENT AUTO 0 % (0-6); IMMATURE GRAN ABSOLUTE AUTO 0.11 K/mm3 (0.00-0.10); IMMATURE GRAN PERCENT AUTO 24 % (0-1); LYMPHOCYTES ABSOLUTE AUTO 0.05 K/mm3 (0.84-5.20); LYMPHOCYTES PERCENT AUTO 11 % (21-46); MONOCYTES ABSOLUTE AUTO 0.07 K/mm3 (0.16-1.47); MONOCYTES PERCENT AUTO 15 % (4-13); NEUTROPHILS ABSOLUTE AUTO 0.22 K/mm3 (1.96-9.15); NEUTROPHILS PERCENT AUTO 48 % (41-73)
[2019-12-03 22:25] LABS: White Blood Cell Count 0.46 K/mm3 (4.00-11.30)
--- NOTE | 2019-12-04 03:00 | NUR ---
CALLED DR. TAVAREZ TO LET HIM KNOW ABOUT LOW URINE OUTPUT, TACHYCARDIC, AND CONTINUOUS DIARRHEA. NEW ORDERS FRO IVF AND IMODIUM.
[2019-12-04 03:09] LABS: Hematocrit 27.6 % (33.0-51.0); Mean Corpuscular HGB 27.8 pg (26.0-34.0); Mean Corpuscular HGB Conc 32.6 g/dL (31.5-36.5); Mean Corpuscular Volume 85 fL (80-100); Mean Platelet Volume 11.5 fL (9.1-12.4); Platelet Count 59 K/mm3 (150-400); RDW Coefficient Variation 16.3 % (11.7-14.2); RDW Standard Deviation 51.2 fL (35.1-46.3); Red Blood Cell Count 3.24 M/mm3 (3.80-5.20)
[2019-12-04 03:14] LABS: White Blood Cell Count 0.54 K/mm3 (4.00-11.30)
[2019-12-04 03:27] LABS: Albumin, Blood 1.8 g/dL (3.4-5.0); Albumin/Globulin Ratio 0.5 (0.8-1.8); Bilirubin, Total 0.7 mg/dL (0.1-1.0); Bun/Creatinine Ratio 29.1 (12.0-20.0); Calcium, Blood 7.9 mg/dL (8.5-10.1); Creatinine, Blood 1.34 mg/dL (0.40-1.00); Globulin, Blood 3.9 g/dL (2.2-4.0); Potassium, Blood 4.1 mmol/L (3.5-5.5); Total Protein, Blood 5.7 g/dL (6.4-8.2)
[2019-12-04 03:46] LABS: BAND PERCENT MAN 22 % (0-8); BASOPHILS PERCENT MAN 0 % (0-2); EOSINOPHILS PERCENT MAN 0 % (0-6); LYMPHOCYTES % ATYPICAL MANUAL 2 % (0-0); LYMPHOCYTES ABSOLUTE MAN 0.06 K/mm3 (0.84-5.20); LYMPHOCYTES PERCENT MAN 10 % (21-46); METAMYELOCYTE ABSOLUTE MAN 0.01 K/mm3 (0.00-0.00); METAMYELOCYTE PERCENT MAN 2 % (0-0); MONOCYTES ABSOLUTE MAN 0.09 K/mm3 (0.16-1.47); MONOCYTES PERCENT MAN 18 % (4-13); NEUTROPHILS ABSOLUTE MAN 0.36 K/mm3 (1.96-9.15); SEG NEUTROPHILS PERCENT MAN 46 % (41-73); TOTAL CELLS COUNTED 50
[2019-12-04 05:27] LABS: Source, Urine Catheter
[2019-12-04 05:44] LABS: Bilirubin, Urine Neg (Neg); Blood, Urine 5+ (Neg); Glucose Qualitative, Urine Neg (Neg); Ketones, Urine Neg (Neg); Leukocyte Esterase, Urine Neg (Neg); Nitrite, Urine Neg (Neg); Protein, Urine 3+ (Neg); Urobilinogen, Urine NORM (Normal)
--- NOTE | 2019-12-04 06:09 | NUR ---
SUMMARY PT RESTING IN BED. HAS NOT SLEPT ALL NIGHT. HAS BEEN AWAKE HAVING DIARRHEA. CALLED DR. TAVAREZ THAT ORDERED IMODIUM. ALSO SPOKE TO HIM ABOUT LOW URINE OUTPUT AND TACHYCARDIA, RECEIVED ORDERS FOR NS AT 75MLS/HR. AFTER RECEIVING ONE DOSE OF IMODIUM BM IS PASTE-LIKE/LIQUID. STILL HAVING MODERATE AMT OF VAGINAL BLEEDING. MCKENNA WAS PLACED LAST NIGHT DUE TO RETENTION AND PT NOT ABLE TO GET OOB. PT IS BEDREST DUE TO HR AND LOW BP. AMIODARONE GTT AT 0.5MG/MIN. HR 120'S-150'S. NO SIGN OF DISTRESS. CALL LIGHT IN REACH.
[2019-12-04 06:46] LABS: Appearance, Urine Hazy (Clear); Color, Urine Yellow (P-Yellow)
[2019-12-04 06:49] LABS: Bacteria Few /hpf; Squamous Epithelial Cells Rare /hpf (Few)
[2019-12-04 06:50] LABS: Renal Epithelial Rare /hpf (0-Rare)
--- NOTE | 2019-12-04 08:15 | NUR ---
[place] of Care: Care assumed at 0700hr. Patient alert and oriented x4, but appears slightly delayed when speaking. Speech is clear, but slow to respond, or difficulty describing events. All other neuro wnl, no facial droop or deficit's to extremities, pupils equal and reactive. Denies pain, discomfort, dyspnea or SOB, spO2-92-96% on RA. Amiodarone gtt infusing at 0.5mg/hr, heart rate/rhythm continues to show A-fibb with BBB, rate 120's-140's. Systolic BP 70's-low 100's this morning. Celis cath patent and intact, draining small amount of clear yellow urine. No bleeding from vaginal tract at this time, NOC shift RN reported moderate amount of vaginal bleeding throughout the night. Dr. Richter to patient's room this morning. Received instructions that Dr. Richter will order to D/C the Amiodarone gtt and NS at 75ml/hr, and write for PO Amiodarone. Dr. Vee also to patient's room this morning. This RN discussed patient's mental status (slow response) with Dr. Vee, who states plan to order head CT this morning as patient is high risk for CVA. Patient calm and comfortable at this time. Call light in reach, makes needs known. Will continue to monitor.
--- NOTE | 2019-12-04 12:00 | NUR ---
Clinical Visit: Pt is known by this com writer from previous admissions. She is alert, oriented. She reports that she has just gotten off of the phone with her son, Gurpreet. She told him that she may not want more chemo treatments, as she states that she isn't sure that she could survive them. She states that her son is supportive of her decisions, whatever they are. Pt is bothered by diarrhea and did not sleep much last night due to this issue. She reports that she is so weak that she can no longer get up. She "almost passed out" when the aide helped her to the toilet. She states, "they haven't let me out of bed since then, and I don't think I want to get up." Reviewed extraordinary measures to keep her alive. Discussed code status and resusitation efforts. She reports that she does not want intubation or chest compressions. This was reviewed in detail with her; she verbalizes understanding of risk of if not resusitated. She is agreeable. Call placed to Dr. Vee. Code status changed.
--- NOTE | 2019-12-04 19:13 | NUR ---
Shift Summary: No significant changes throughout shift. Dr. Vee informed this RN (this morning), that a head CT scan was not indicated at this time. No change in neuro status throughout shift. Heart rate continues to show Afibb with BBB rate 130's-150's. Call placed to Dr. Richter this evening r/t continues HR up to 150. Dr. Yun instructed to continue current plan/medications, loading doses of PO Amiodarone. No further orders/instructions received. Patient continues to have loose stool throughout shift, approx 5 in total. Stool sample collected this evening and sent to lab. Also continues to have vaginal bleeding throughout shift, small to moderate amount. BP labile, but mostly systolic of 90's- low 100's. Celis cath remains patent and intact, 250ml clear yellow output throughout shift. Call light in reach. Makes needs known.
[2019-12-04 20:11] LABS: Adenovirus F 40/41 Not Detected (NOT DETECT); Astrovirus Not Detected (NOT DETECT); Campylobacter Sp Not Detected (NOT DETECT); Cryptosporidium Not Detected (NOT DETECT); Cyclospora Cayetanensis Not Detected (NOT DETECT); E. Coli O157 Not Detected (NOT DETECT); Entamoeba Histolytica Not Detected (NOT DETECT); Enteroaggregative E. coli-EAEC Not Detected (NOT DETECT); Enteropathogenic E. coli-EPEC Not Detected (NOT DETECT); Enterotoxigenic E. coli-ETEC Not Detected (NOT DETECT); Giardia Lamblia Not Detected (NOT DETECT); Norovirus GI/GII Not Detected (NOT DETECT); Plesiomonas Shigelloides Not Detected (NOT DETECT); Rotavirus A Not Detected (NOT DETECT); Salmonella Sp Not Detected (NOT DETECT); Sapovirus Not Detected (NOT DETECT); Shiga Toxin-prod E. coli-STEC Not Detected (NOT DETECT); Shigella/Enteroin E. coli-EIEC Not Detected (NOT DETECT); Vibrio Cholerae Not Detected (NOT DETECT); Vibrio Sp Not Detected (NOT DETECT); Yersinia Enterocolitica Not Detected (NOT DETECT)
--- NOTE | 2019-12-04 21:30 | NUR ---
PT RESTING IN BED. DENIES PAIN, N/V, AND SOB. PT IS INCONTINENT OF STOOL. CONTINUES TO HAVE MODERATE AMT OF VAGINAL BLEEDING. HR REMAINS 120'S-150'S. BP STABLE. NO SIGN OF DISTRESS.
[2019-12-05 03:28] LABS: Hematocrit 26.1 % (33.0-51.0); Hemoglobin 8.5 g/dL (11.5-16.0); Mean Corpuscular HGB 27.8 pg (26.0-34.0); Mean Corpuscular HGB Conc 32.6 g/dL (31.5-36.5); Mean Corpuscular Volume 85 fL (80-100); Mean Platelet Volume 11.5 fL (9.1-12.4); Platelet Count 60 K/mm3 (150-400); RDW Coefficient Variation 16.6 % (11.7-14.2); RDW Standard Deviation 52.2 fL (35.1-46.3); Red Blood Cell Count 3.06 M/mm3 (3.80-5.20)
[2019-12-05 03:32] LABS: White Blood Cell Count 0.98 K/mm3 (4.00-11.30)
[2019-12-05 03:40] LABS: Albumin, Blood 1.6 g/dL (3.4-5.0); Albumin/Globulin Ratio 0.5 (0.8-1.8); Bilirubin, Total 0.6 mg/dL (0.1-1.0); Bun/Creatinine Ratio 36.6 (12.0-20.0); Calcium, Blood 7.7 mg/dL (8.5-10.1); Creatinine, Blood 1.23 mg/dL (0.40-1.00); Globulin, Blood 3.5 g/dL (2.2-4.0); Potassium, Blood 3.6 mmol/L (3.5-5.5); Total Protein, Blood 5.1 g/dL (6.4-8.2)
[2019-12-05 03:42] LABS: BAND PERCENT MAN 14 % (0-8); BASOPHILS PERCENT MAN 0 % (0-2); EOSINOPHILS PERCENT MAN 0 % (0-6); LYMPHOCYTES ABSOLUTE MAN 0.13 K/mm3 (0.84-5.20); LYMPHOCYTES PERCENT MAN 14 % (21-46); METAMYELOCYTE ABSOLUTE MAN 0.01 K/mm3 (0.00-0.00); METAMYELOCYTE PERCENT MAN 2 % (0-0); MONOCYTES ABSOLUTE MAN 0.17 K/mm3 (0.16-1.47); MONOCYTES PERCENT MAN 18 % (4-13); MYELOCYTE ABSOLUTE MAN 0.01 K/mm3 (0.00-0.00); MYELOCYTE PERCENT MAN 2 % (0-0); NEUTROPHILS ABSOLUTE MAN 0.62 K/mm3 (1.96-9.15); SEG NEUTROPHILS PERCENT MAN 50 % (41-73); TOTAL CELLS COUNTED 50
--- NOTE | 2019-12-05 06:00 | NUR ---
SUMMARY PT RESTING IN BED. DENIES PAIN. STILL HAVING MODERATE AMT OF VAGINAL BLEEDING. INCONTINENT OF STOOL. CAN HELP TURN IN BED BUT NEEDS ENCOURAGEMENT TO REPOSITION. HR REMAINS 120'S-150'S AND BP STABLE. PT GOT A LITTLE MORE SLEEP THAN PREVIOUS NIGHT. CALLING APPROPRIATELY. NO SIGN OF DISTRESS.
--- NOTE | 2019-12-05 07:48 | NUR ---
[place] of Care: Care assumed at 0700h. Patient sleeping but easily roused to verbal stimuli. Alert an oriented x4, faster responses this morning compared to yesterday morning. Denies pain, discomfort, SOB, or dyspnea, SpO2-95% on RA. Heart rhythm shows A-fibb with BBB, rate 120's-140's, BP stable. Peripheral IV x1 patent and intact. Celis cath patent and intact, draining clear yellow urine. scant amount of vaginal bleeding at this time. Will discuss possible status change with Dr. Vee this morning. Call light in reach, makes needs known. Will continue to monitor.
--- NOTE | 2019-12-05 14:30 | NUR ---
Transfer to PCU: Patient transferred to PCU at this time. Report called to Yazmin SIMPSON before transfer. Belongings sent with patient to PCU rm2. No significant changes throughout the morning.
--- NOTE | 2019-12-05 14:51 | NUR ---
pt arrived to room pcu 2 pt stated her belly feels more tight and sore asked pt if she has had more vag bleeding or more stool stated no but has had gas rn stated she just had a smear of stool will cont to monitor s/s
--- NOTE | 2019-12-05 16:26 | NUR ---
pt talking on the phone pt asked if her grandson could come in talked with nursing instrument maintenance supervisor stated no children can visit pt
--- NOTE | 2019-12-05 17:38 | NUR ---
pt had lg diarrhea new dressing placed to coccyx pt still having lot of vag drainage
--- NOTE | 2019-12-05 19:30 | NUR ---
Assumed Care report recieved from CALVIN Arce and care assumed at this time. Pt sitting in bed, eating popsicle. She is lying on her left side. VSS. Pt with no acute concerns, denies acute pain, denies palpitations or shortness of breath. Pt is conversing appropriately, fully alert and oriented. No acute blood loss noted at the start of this shift however with pts dx of endometrial cancer, she has a hx of vaginal bleeding including during this hospital stay. Plan of care discussed with pt for this shift and close monitoring of HR and Rhythm, blood loss, and mentation. See shift assessment for detailed systems assessment
[2019-12-06 04:18] LABS: BASOPHILS ABSOLUTE AUTO 0.02 K/mm3 (0.00-0.23); BASOPHILS PERCENT AUTO 1 % (0-2); Hematocrit 27.1 % (33.0-51.0); Hemoglobin 8.7 g/dL (11.5-16.0); LYMPHOCYTES ABSOLUTE AUTO 0.23 K/mm3 (0.84-5.20); LYMPHOCYTES PERCENT AUTO 16 % (21-46); MONOCYTES ABSOLUTE AUTO 0.17 K/mm3 (0.16-1.47); MONOCYTES PERCENT AUTO 12 % (4-13); Mean Corpuscular HGB 27.6 pg (26.0-34.0); Mean Corpuscular HGB Conc 32.1 g/dL (31.5-36.5); Mean Corpuscular Volume 86 fL (80-100); NRBC ABSOLUTE 0.02 K/mm3 (0.00-0.02); NRBC Auto 1.4 /100 WBC (0.0-0.2); RDW Coefficient Variation 16.6 % (11.7-14.2); RDW Standard Deviation 52.5 fL (35.1-46.3); Red Blood Cell Count 3.15 M/mm3 (3.80-5.20); White Blood Cell Count 1.46 K/mm3 (4.00-11.30)
[2019-12-06 04:19] LABS: EOSINOPHILS ABSOLUTE AUTO 0.02 K/mm3 (0.00-0.68); EOSINOPHILS PERCENT AUTO 1 % (0-6); IMMATURE GRAN ABSOLUTE AUTO 0.09 K/mm3 (0.00-0.10); IMMATURE GRAN PERCENT AUTO 6 % (0-1); NEUTROPHILS ABSOLUTE AUTO 0.93 K/mm3 (1.96-9.15); NEUTROPHILS PERCENT AUTO 64 % (41-73)
[2019-12-06 04:20] LABS: Platelet Count 42 K/mm3 (150-400)
[2019-12-06 04:24] LABS: Bun/Creatinine Ratio 37.4 (12.0-20.0); Calcium, Blood 7.9 mg/dL (8.5-10.1); Creatinine, Blood 1.23 mg/dL (0.40-1.00); Potassium, Blood 4.1 mmol/L (3.5-5.5)
[2019-12-06 05:39] LABS: BAND PERCENT MAN 32 % (0-8); BASOPHILS PERCENT MAN 0 % (0-2); EOSINOPHILS ABSOLUTE MAN 0.02 K/mm3 (0.00-0.68); EOSINOPHILS PERCENT MAN 2 % (0-6); LYMPHOCYTES PERCENT MAN 14 % (21-46); METAMYELOCYTE ABSOLUTE MAN 0.02 K/mm3 (0.00-0.00); METAMYELOCYTE PERCENT MAN 2 % (0-0); MONOCYTES ABSOLUTE MAN 0.14 K/mm3 (0.16-1.47); MONOCYTES PERCENT MAN 10 % (4-13); NEUTROPHILS ABSOLUTE MAN 1.05 K/mm3 (1.96-9.15); SEG NEUTROPHILS PERCENT MAN 40 % (41-73); TOTAL CELLS COUNTED 50
--- NOTE | 2019-12-06 06:22 | NUR ---
Shift Summary Pt with VSS this shift, critical low platelets this shift called to provider and no new orders received. Repositioned q2 hrs. Multiple BM's this shift, incont of bowel. Celis patent and draining. Bloody vaginal drainage this shift. Pt remains fully alert and oriented. No events on telemetry. Denies acute pain. No acute changes from initial assessment. Will continue to monitor.
--- NOTE | 2019-12-06 17:35 | NUR ---
SHIFT SUMMARY PT TRANSFERRED FROM PCU THIS [place]. SHE IS A/O X 4 AND HAS NO C/O PAIN OR DISCOMFORT. SHE WAS ORIENTED TO HER NEW ROOM AND STAFF AND ACKNOWLEDGES HOW TO USE THE CALL LIGHT FOR HELP WHEN NEEDED. HER SON IS AT THE BEDSIDE AND VERY ATTENTIVE TO HER NEEDS. PER THE DOCTOR SINCE THE PT IS TRANSITIONING TO HOSPICE AND WILL MOST LIKELY BE DISCHARGING HOME TOMORROW THEY ARE GOING TO CONTINUE TO ALLOW HER SON TO VISIT DURING THE DAY. PT V/S ARE WNL. SHE IS SITTING UP IN BED WITH HER DINNER TRAY. SHE IS ABLE TO MAKE HER NEEDS KNOWN AND CALLS FOR HELP WHEN NEEDED.
--- NOTE | 2019-12-06 23:56 | NUR ---
12/06/19 2350 HEART TRAVELING CLERK, HALEY, CALLED THAT PT'S HR IS 140-150'S SUDDENDLY. PT RESTING IN BED AND JUST HAD LARGE DIARRHES AND WAS SLIGHTLY NAUSEATED JUST PRIOR. TRUCK TECHNICIAN CLEANED HER UP AND HR NOW AT AROUND 100.
[2019-12-07 04:36] LABS: Hematocrit 25.3 % (33.0-51.0); Mean Corpuscular HGB 27.5 pg (26.0-34.0); Mean Corpuscular HGB Conc 31.6 g/dL (31.5-36.5); Mean Corpuscular Volume 87 fL (80-100); RDW Coefficient Variation 16.4 % (11.7-14.2); RDW Standard Deviation 52.4 fL (35.1-46.3); Red Blood Cell Count 2.91 M/mm3 (3.80-5.20); White Blood Cell Count 2.17 K/mm3 (4.00-11.30)
[2019-12-07 04:50] LABS: Bun/Creatinine Ratio 37.6 (12.0-20.0); Calcium, Blood 7.8 mg/dL (8.5-10.1); Creatinine, Blood 1.09 mg/dL (0.40-1.00); Potassium, Blood 4.2 mmol/L (3.5-5.5)
[2019-12-07 04:53] LABS: Platelet Count 30 K/mm3 (150-400)
[2019-12-07 05:27] LABS: BAND PERCENT MAN 29 % (0-8); BASOPHILS PERCENT MAN 0 % (0-2); EOSINOPHILS PERCENT MAN 0 % (0-6); LYMPHOCYTES ABSOLUTE MAN 0.26 K/mm3 (0.84-5.20); LYMPHOCYTES PERCENT MAN 12 % (21-46); METAMYELOCYTE ABSOLUTE MAN 0.08 K/mm3 (0.00-0.00); METAMYELOCYTE PERCENT MAN 4 % (0-0); MONOCYTES ABSOLUTE MAN 0.04 K/mm3 (0.16-1.47); MONOCYTES PERCENT MAN 2 % (4-13); MYELOCYTE ABSOLUTE MAN 0.13 K/mm3 (0.00-0.00); MYELOCYTE PERCENT MAN 6 % (0-0); NEUTROPHILS ABSOLUTE MAN 1.64 K/mm3 (1.96-9.15); SEG NEUTROPHILS PERCENT MAN 47 % (41-73); TOTAL CELLS COUNTED 100
--- NOTE | 2019-12-07 06:23 | NUR ---
12/07/19 0620 PT AWAKE. VOTATOR MACHINE OPERATOR AND RN CHANGED HER ATTENDS AGAIN FOR MODERATE AMT OF VAGINAL BLEED. PT STATES SHE CAME INTO HOSPITAL FOR THIS BLEED. STATES SHE FEELS SLIGHTLY BETTER THIS AM. HEART MONITOR HAS BEEN "ATRIAL FIB AVERAGING AROUND 100" PER FOREST ECOLOGY PROFESSOR. DENIES ANY SOB,NAUSEA OR PAIN AT THIS TIME. MCKENNA WITH CLEAR, YELLOW URINE. ONLY 2 LOOSE, BROWN STOOLS THIS SHIFT.
--- NOTE | 2019-12-07 15:55 | NUR ---
Initial spiritual care note: Lengthy visit with Alaina. We met on ehr previous admission and have an easy rappoort. She appears quite frail. she told me about her cancer treatments. She is unsure if they have been helpful or not. She does tell me that these interventions have left her quite weak. She has been living with her son and 12 year-old grandson. She explained to me that she is planning on returning home with hospice services. Her son, Gurpreet, called as we spoke and Alaina asked me to stay. Gurpreet spoke via speaker and I was part of conversation. Santy states that he haad just gotten off the phone with pt's oncologist. A complete hysterectomy has now been offered. Gurpreet was unclear of the benefit/risk but told his mom he thought it may give her "more time." Gurpreet also stated that he was uncertain he would be able to care for pt at home if she choose hospice sevices. He works full-time, leaving his 12 year-old son alone with pt. Gurpreet thinks neither of them can manage total care of Alaina. Alaina was clearly overwhemled by this conversation and uncertain what she wanted to do. We spoke at length about her paula and love for God. She calmed considerably with prayer and spiritual deputy general counsel. Alaina and her family will certianly benefit from a clear, understandable explaination of her options (benefits and risks) going forward. Conferenced with palliative care and asked RN to follow-up if possible.
--- NOTE | 2019-12-07 18:58 | NUR ---
NO CHANGES NOTED THIS SHIFT, PATIENT IS COMOFRTABLE.
--- NOTE | 2019-12-08 06:42 | NUR ---
SHIFT SUMMARY ON COMFORT CARE. NO ACUTE CHANGES. DENIES N/V, DYSPNEA OR PAIN. REPORTS SHE IS COMFORTABLE. CALL LIGHT IN REACH & PT MAKES NEEDS KNOWN. WCTM.
--- NOTE | 2019-12-08 14:51 | NUR ---
Pt resting affect moderate states minimal pain and discomfort. She states struggling with food and the feeling of fullness in her rectum. She states soemtimes its stool and sometimes it is blood. We reviewed prn meds and padding. She states that her son will take her home he is renting a starage cubical and clearing out her room and getting some caregiver help. She has been tolerating working with PT and not having any chest pain or palpitations. We revieweed equipment and home environment. She states she has a chair she will sit in and get a bedside commode. Her friends are also going to come help care for her. We discussed her cancer she states that she will need more chemo before they will will give her a hysterectomy. She states she will not tolerate more treatment and has sopted for hospice. Advised her that if she changes her mind she can come off hospice and seek care. She feels that she will not recover from the cancer so we discussed quality of life. review of patients needs with chapolivia Johnston.
--- NOTE | 2019-12-08 17:57 | NUR ---
Routine spiritual care note: Met with Citlalli and her son, Gurpreet, at bedside. We spoke at length about hospice and dying. Affirmed obvious love and complimented both on their contribution to the world. Both were tearful at imes, but appropriate. Provided nearing education at son's request. Offered gentle retirement plan counselor top good effect. Prayer for peaceful transition. Pt and son expressed gratitude for these interventions. Gurpreet is working hard to get home ready to bring pt home. Both express hope she can stay here until home is safe for her discharge ;ie caregivers in place, equipment, etc. Gurpreet believes he will have things in place by Friday. Waybill Clerk services will remain available.
--- NOTE | 2019-12-08 19:42 | NUR ---
SHIFT SUMMARY SON AT BEDSIDE THIS AFTERNOON WITH PT. HAS BEEN INCONTINENT OF STOOL AND CONTINUES TO HAVE VAGINAL BLEEDING. HAS DENIED PAIN THROUGHOUT DAY. L HAND BECAME SWOLLEN DUE TO WRAP ON L WRIST. WRAP REMOVED AND ENCOURAGED PT TO KEEP IT ELEVATED ON A PILLOW.
--- NOTE | 2019-12-09 03:05 | NUR ---
EPIC INTERFACE ANALYST SUMMARY Patient slept intermittantly between waking feeling uncomfortable in bloody drainage in brief. Once small liquid stool mixed in with blood. Looking forward to going home over weekend with family. no complaints of discomfort except when she was having mixed stool and blood.
--- NOTE | 2019-12-09 12:45 | NUR ---
pt resting review of pt with nursing. will review prn meds with hospice physician.
--- NOTE | 2019-12-09 18:24 | NUR ---
SHIFT SUMMRY CONTINUES TO BLEED VAGINALLY. REPORTS SHE HAS FAMILY THAT WOULD LIKE TO VISIT HER THIS EVENING FROM [place]. CALLED TENT TO NOTIFY. HAS DECLINED ANY PAIN MEDS BUT DID GIVE HER SOME IMMODIUM THIS A.M. HAS HAD MINIMAL STOOL TODAY. STILL WORKING ON DISCHARGE PLANNING NOW FOR AN ADULT FOSTER HOME.
--- NOTE | 2019-12-09 23:51 | NUR ---
Family visiting patient when HS meds came around, and patient decided not to take them (isosorbide and lactobaccilis) tonight. Immodium was given for loose stools.
--- NOTE | 2019-12-10 07:59 | NUR ---
REPORTS ANALYST SUMMARY Patient had lots of family in last evening. Notable, her "little" brother Stuart and his . Who were asking about Alaina's care, and the possibility of her receiving a unit of PRBC prior to her leaving the hospital to boost her comfort and also longevity so that she could see and say good by to the rest of her family. Alaina still semi saturating tyra area of briefs about every 1.5 to 2 hours all night. No complaints of pain. refused HS meds except took a PRN Lomotil which seemed to help her with the "rolling in her stomach" while her family visited.
--- NOTE | 2019-12-10 19:31 | NUR ---
SHIFT SUMMARY PATIENT IS PLEASANT ALERT AND ORIENTED. SHE IS CURRENTLY ON COMFORT CARE. NO ACUTE CONCERNS AT THIS TIME. WE SPOKE ALOT ABOUT THE VISITOR POLICY AND LOTS OF FAMILY HAS TRIED TO COME IN TODAY. PATIENT HAS SPOKEN WITH HER FAMILY ABOUT THE VISITOR POLICY AND SO HAVE WE. PATIENT IS UNDERSTANDING OF THE CURRENT CONCERNS AND NOTED THAT SHE PREFERS NOT TO BE LUCIE UVLNERABLE SHE CURRENTLY IS ANYWAYS.
--- NOTE | 2019-12-10 20:04 | NUR ---
pt resting states less preassure in pelvis and slighly more comfortable today denies pain. Pt tearfull when speaking of going to retirement she wants to go home. asked by staff to address visitation and plan of care. pt has several family memeber who want to come visit. Advised pt they are restricting visitors for everyones protection. Asked if she wanted me to call her brother and explain policy as he is stressed at not seeing her. She want to speak with him so proaised her for doing that. we discussed strategies of caregiver time with family and help with going home for short visits. will update hospice team. pt struggling with being isolated and in bed. she sleeps in recliner. nursing staff will offer recliner. We reviewed diversion and she does word search and some times colors. Gave her word suearch puzzles and some coloring p[ages and pens . Will follow for symtom managment and stress reduction.
--- NOTE | 2019-12-10 22:14 | NUR ---
2035 PT C/O DIARRHEA, PRN; IMODIUM 2MG PO GIVEN.
--- NOTE | 2019-12-10 23:26 | NUR ---
1900 report received from mohan rubin; pt comfort care; resting comfortably in bed.
--- NOTE | 2019-12-11 04:44 | NUR ---
SHIFT SUMMARY: 69 Y/O COMFORT CARE PATIENT HAD UNEVENTFUL SHIFT; PT HAD DIARRHEA AT BEGINNING OF SHIFT WITH IMODIUM 2MG PO GIVEN WITH NO FURTHER EPISODES NOTED; PT ALERT AND ORIENTED X4; BED LOW POSITION WITH CALL LIGHT AT SIDE.
--- NOTE | 2019-12-11 17:00 | NUR ---
Clinical Visit/Comfort Measures: Pt remains comfortable. She is complaining of some minor bloating, but this is not painful. Pt is calm at time of visit. Discussed symptom management. She feels comfortable letting staff know when she needs medications. No concerns. Will remain available.
--- NOTE | 2019-12-11 18:47 | NUR ---
shift summary patient is pleasant, alert and oriented. comfort care. denies pain. calls appropriately. still feeling better emotionally but does note she feels vulnerable. her biggest concern is where she is going from the hospital, when she will get out, and dealing with the fact she will not be going home after the hospital stay but instead to a facility.
--- NOTE | 2019-12-12 05:15 | NUR ---
VENEER JOINTER OFFBEARER SUMMARY PT AAOX4 AND VERY PLEASANT. CALLS APPROPRIATELY FOR ASSISTANCE. PT CONTINUES ON COMFORT CARE MEASURES. AT START OF SHIFT PALLIATIVE CARE RN MONICA SPOKE WITH PT AND THEN SUGGESTED ATIVAN AT BEDTIME FOR THE PT WHO HAS ANXIETY AT TIMES. ASKED PT IF SHE WANTED TO TRY THE ATIVAN AND PT DECLINED AT BEDTIME. THIS MORNING PT WOKE UP IN A SLIGHT PANIC ATTACK, HELPED PT WITH DEEP BREATHING AND TALKING HER THROUGH IT. ALSO ASKED IF PT WANTED ME TO GET ORDER FOR ATIVAN FROM MD, HOWEVER PT DECLINED ONCE AGAIN. CONTINUES TO HAVE BLOODY DISCHARGE IN ATTENDS. PT RESTING IN BED AT THIS TIME. WILL CONTINUE TO MONITOR.
--- NOTE | 2019-12-12 07:37 | NUR ---
ASSUMPTION OF CARE NOTE- PATIENT IS ALERT AND ORIENTED. NO ACUTE CONCERNS THIS MORNING. SHE DENIES PAIN AND HAD SOME ANXIETY THIS MORNING. WILL ASSESS FOR CHANGES. SHE NOTES THAT HER ANXIETY HAS GONE DOWN. WILL ADDRESS CONCERNS THEY ARISE THIS MORNING.
--- NOTE | 2019-12-12 14:00 | NUR ---
Comfort Measures: Pt appears to be resting comfortably. No s/s of distress noted. Notes and chart reviewed, medications reviewed.
--- NOTE | 2019-12-12 18:05 | NUR ---
SHIFT SUMMARY PATIENT IS ALERT AND ORIENTED. NO CHANGES FROM ASSUMPTION OF CARE NOTE. SHE HAS BEEN A GREAT PATIENT, CALLS APPROPRIATELY. PATIENT DENIES PAIN OR ANXIETY TODAY.
--- NOTE | 2019-12-13 04:55 | NUR ---
COMMERCIAL ARTIST SUMMARY NO ACUTE CHANGES THIS SHIFT. PT AAOX4 AND PLEASANT. DENIES PAIN. RECIEVED ORDER FROM DOCTOR FOR PO ATIVAN PER REQUEST OF PT AFTER THEY HAD DISCUSSED IT WITH MD EARLIER IN THE DAY. WHEN ORDER PLACED PT WAS SLEEPING AT THAT POINT SO NO ATIVAN HAS BEEN GIVEN THUS FAR. PT HAS SLEPT THROUGH MOST OF THE NIGHT. WILL CONTINUE TO MONITOR AND PROVIDE COMFORT CARE MEASURES.
--- NOTE | 2019-12-13 12:11 | NUR ---
[facility] Comfort Care visit made to pt. She is awake in her room. Introduced myself and assessment of s/s done. Pt feels current medications are managing her pain and s/s. She denies distressing s/s of pain, dyspnea, anxiety at this time. She denies any other needs. Spoke with engineering production liaison/social contact worker re: plan for d/c to Assisted Living or residential care facility in [facility], when one available to accept with Hospice services to follow.
--- NOTE | 2019-12-13 15:55 | NUR ---
Routine spiritual care note: Alaina became tearful when telling me about plan. She was hoping to return home and is dissapointed. Through encouragement, she elaborated her sorrow at multiple losses: loss of independance, home, health. I facilitated grief personal financial counselor to good effect. Emotional validation was well recieved. Alaina is a very gentle soul. Prayer for courage, safety, and family at her request. Family has been unable to visit. Met with RN about this. Family/friends may come visit as Alaina needs all the love and support she can get. Informed ED tent staff of mask requirement for visitors. I will remain available.
--- NOTE | 2019-12-13 19:25 | NUR ---
PT QUITE PLEASANT COOP TODAY. FAMILY AND FRIENDS FINALLY ADMITTED TO SEE HER. COUNTANANCE IMPROVED. NO C/O PAIN. PENDING D/C TOMORROW. COVID R/O NEGATIVE. BED IN LOW POSITION, CALL LITE IN REACH, CALLS APPROP
--- NOTE | 2019-12-14 05:26 | NUR ---
MEDICAL INFORMATION SPECIALIST SUMMERY NO ACUTIE CHANGES DURING SHIFT. PT AAOX4. PT RESTED THROUGHOUT NIGHT. DENIES PAIN. PT ON COMFORT CARE. VSS. WILL CONTINUE TO MONITOR UNTIL SHIFT CHANGE,
--- NOTE | 2019-12-14 06:06 | NUR ---
400ml FROM MCKENNA
[2019-12-14] MEDS ORDERED: ACET325 PO (09:03)
[2019-12-14] MEDS ORDERED: ATROPINE SULFATE2 ML (09:05)
[2019-12-14] MEDS ORDERED: [UNRECOGNIZED DRUG - SUPPLY] TOP (09:09)
[2019-12-14] MEDS ORDERED: LOPE2C PO (09:13)
[2019-12-14] MEDS ORDERED: MORP20L (09:15)
--- NOTE | 2019-12-14 09:23 | NUR ---
PT PLEASANT COOP A/O. DENIES PAIN. IS COMFORT CARE GOING TO [facility] TODAY 1030. DENIES WOUNDS, MODERATE BLOOD IN ATTENDS CHANGING REGULARLY. PT ABLE TO TELS STAFF WHEN NEEDS CLEANED UP. NO OTHER CONCERNS AT THIS TIME. BED IN LOW POSITION, CALL LITE IN REACH, CALLS APPROP
--- NOTE | 2019-12-14 09:54 | NUR ---
DISCHARGE REVIEWED WITH PT . PT VERBALIZED UNDERSTANDING OF MEDS AND INST. NO IV, NO TELE. CALLED REPORT TO GORDO SIMPSON AT [facility]. NO OTHER CONCERNS AT THIS TIME. PENDING TRANSPORT SHORTLY.
--- NOTE | 2019-12-14 10:51 | NUR ---
PT TRANSPORT HERE. OUT DOOR AT 0670
== END 2019-12-14 10:48 | disposition home or self-care (01) | DRG 871 ==
LOC: ER 20:16 → PCU 23:52 → ICUE 23:52 → ICUW 23:52 → MEDS 23:52 → ICUE 23:58 → PCU 12-05 14:35 → MEDS 12-06 16:53 → ENPENDDIS 12-13 16:45 → MEDS 12-14 10:48
PROVIDERS: Emergency Medicine; Hospitalist; Internal Medicine; Physician Assistant; ADMIT Internal Medicine
DX: A41.51 Sepsis due to Escherichia coli [E. coli] (principal); D61.810 Antineoplastic chemotherapy induced pancytopenia; I42.9 Cardiomyopathy, unspecified; N17.9 Acute kidney failure, unspecified; K52.1 Toxic gastroenteritis and colitis; I50.22 Chronic systolic (congestive) heart failure; I13.0 Hypertensive heart and chronic kidney disease with heart failure and stage 1 through stage 4 chronic kidney disease, or unspecified chronic kidney disease; N39.0 Urinary tract infection, site not specified; G93.40 Encephalopathy, unspecified; I25.2 Old myocardial infarction; Z95.5 Presence of coronary angioplasty implant and graft; Z79.82 Long term (current) use of aspirin; E78.5 Hyperlipidemia, unspecified; Z51.5 Encounter for palliative care; E86.0 Dehydration; I25.10 Atherosclerotic heart disease of native coronary artery without angina pectoris; D50.0 Iron deficiency anemia secondary to blood loss (chronic); T45.1X5A Adverse effect of antineoplastic and immunosuppressive drugs, initial encounter; I48.91 Unspecified atrial fibrillation; I44.7 Left bundle-branch block, unspecified; I95.9 Hypotension, unspecified; T46.2X5A Adverse effect of other antidysrhythmic drugs, initial encounter; Y92.239 Unspecified place in hospital as the place of occurrence of the external cause; C54.1 Malignant neoplasm of endometrium; Z66 Do not resuscitate; N18.3 Chronic kidney disease, stage 3 (moderate); I35.0 Nonrheumatic aortic (valve) stenosis; I34.0 Nonrheumatic mitral (valve) insufficiency
CPT/HCPCS: 0097U; 0099U; 36415; 36430; 51702; 71045; 80048; 80053; 81001; 82947; 83605; 83735; 83880; 84443; 85014; 85018; 85025; 85610; 86850; 86900; 86901; 86923; 87040; 87077; 87086; 87186; 93005; 93010; 96365-59; 97110; 97116; 97163; 97167; 97530; 97535; 99285-25; A9270; A9270-GY; J0282; J0692; J0696; J1160; J2543; J2916; J3475; J7030; J7050; J7060; P9016; P9046; U0002; U0003